=== PATIENT | female | born 1990 | race African-American/Black ===

== ENCOUNTER → 2018-06-20 | Outpatient (CLI) | END | disposition home or self-care (01) ==

== ENCOUNTER → 2018-07-29 | Outpatient (CLI) | payer OTHER ==
--- NOTE | 2018-07-29 17:33 | CONS ---
Date/Time of Note Date/Time of Note DATE: 07/29/18 TIME: 17:29 Consult Date/Type/Reason Admit Date/Time Initial Consult Date Subjective This is a 28-year-old female who is following up today for her MRI results of her right knee. She was seen previously for long-standing right knee pain. She was diagnosed with patellofemoral syndrome. An MRI was obtained to better evaluate for trochlear dysplasia as well as TTTG distance. Her symptoms are unchanged. She reiterates that previously she had therapy which helped her si gnificantly. However last time she went to therapy at this other center she did not feel she had any benefit. She denies any changes in her symptoms. Denies any instability or dislocation of the patella. Objective Weight: 184 pounds Height: 5 feet 5 inches Temperature: 98.0 Heart Rate: 101 Blood Pressure: 140/99 Respiratory Rate: 14 Exam General: Alert, oriented x3. No Acute Distress. Heart: Regular rate and rhythm. Lungs: No respiratory distress. No accessory muscle use. Musculoskeletal: Right Knee This is a well developed female who is alert, oriented times three and in no apparent distress. Skin is intact over the right knee as well as the lower extremity with no abrasions, lacerations, or ulcerations. Observation of the patient's gait reveals a non- antalgic gait with No thrust. Frontal plane alignment is slight valgus. There is no pain on palpation of the joint line. There is mild tenderness to palpation over the insertion of the quadricep tendon and over the patella. The patient demonstrates grinding anteriorly with ROM. Range of motion: 0 extension to approximately 130 degrees of flexion. Collateral ligament testing reveals no instability with varus or valgus stress at 0 and 30 degrees of flexion. No apprehension with patella subluxation laterally. Negative Savita's. Negative Sharmin's and negative posterior drawer. Neurovascularly intact with 5/5 EHL/tibialis anterior/gastroc. Sensation intact to light touch in a sural, saphenous, deep peroneal, superficial peroneal, medial and lateral plantar nerve distribution. Palpable, symmetric dorsalis pedis and posterior tibial pulses in both lower extremities. Hip examination normal. Results/Medications Results 24 hrs Images of the MRI of the right knee personally reviewed. The TTTG distance is 17 mm. The remainder of the MRI is essentially normal except for mild proximal patellar tendinosis as well as mild chondral softening within the patella. Otherwise the MRI is normal with no medial or lateral meniscus tear or chondral injury. The MCL and LCL are intact as well. ACL and PCL are intact as well. Assessment/Plan Chief Complaint/Hosp Course This is a 28-year-old female with right knee patellofemoral syndrome. Based on MRI her TTTG distance is 17 mm which is under 20 mm. 20 mm is the threshold for any possible surgical treatment. Therefore I am recommending continued physical therapy and anti-inflammatories. Patient to follow-up as needed MINH MENDENHALL MD Jul 29, 2018 17:33
== END | disposition home or self-care (01) ==
LOC: HKI 14:32
PROVIDERS: ATTEND Orthopaedic Surgery Adult Reconstructive Orthopaedic Surgery
DX: M25.861 Other specified joint disorders, right knee (principal)
CPT/HCPCS: G0463